=== PATIENT | female | born 1995 | race Two or more races ===

== ENCOUNTER 2017-02-11 06:40 | Day surgery (SDC) | payer OTHER ==
[2017-02-10 11:18] VITALS: BMI 30.2
[~2017-02-11] VITALS: Ht 157.5 cm; Wt 70.0 kg
[2017-02-11 07:56] VITALS: Ht 157.5 cm; Wt 70.0 kg
[2017-02-11 08:04] VITALS: BP 102/65; PULSE 97; RESP 18
[2017-02-11] MEDS ORDERED: PROPOFOL 100 ML ONE (09:27)
[2017-02-11] MEDS ORDERED: DEXAMETHASONE 4 MG/ML 1 ML INJ ONE (09:30)
[2017-02-11] MEDS ORDERED: ROCURONIUM 50 MG INJ ONE (09:30)
[2017-02-11] MEDS ORDERED: LIDOCAINE 2% (SDV) 5 ML INJ ONE (09:31)
[2017-02-11] MEDS ORDERED: MIDAZOLAM 1 MG/ML 2 ML INJ ONE (09:32)
[2017-02-11] MEDS ORDERED: FENTAnyl 50 MCG/ML VIAL ONE (09:32)
[2017-02-11] MEDS ORDERED: hydrALAzine 20 MG INJ IV PRN (10:00)
[2017-02-11] MEDS ORDERED: HYDROmorphONE (0.2 MG/ML) 10ML SYG IV PRN ×3 (10:00)
[2017-02-11] MEDS ORDERED: ONDANSETRON 4 MG INJ IV PRN (10:00)
[2017-02-11] MEDS ORDERED: FENTAnyl 50 MCG/ML VIAL IV PRN ×3 (10:00)
[2017-02-11] MEDS ORDERED: LABETALOL HCL 20MG INJ IV PRN (10:00)
[2017-02-11] MEDS ORDERED: OXYCODONE/ACETAMINOPHEN (5/325) TAB PO PRN ×2 (10:00)
[2017-02-11] MEDS ORDERED: MEPERIDINE 25 MG INJ IV PRN (10:00)
[2017-02-11] MEDS ORDERED: EPHEDrine SULFATE 50 MG/5 ML SYG IV PRN (10:00)
== END 2017-02-11 10:25 | disposition home or self-care (01) ==
LOC: SDS 06:40
PROVIDERS: ATTEND Ophthalmology
DX: H50.52 Exophoria (principal); Z53.9 Procedure and treatment not carried out, unspecified reason
CPT/HCPCS: 84703; J1100; J2250; J3010; Z7610

== ENCOUNTER 2017-02-13 07:55 | Day surgery (SDC) | payer OTHER ==
[~2017-02-13] VITALS: Ht 157.5 cm; Wt 70.4 kg
[2017-02-13] VITALS (17 sets, daily range): BP systolic 109–119; BP diastolic 66–74; PULSE 82–98; RESP 16–21; Ht 157.5 cm; Wt 70.4 kg
[~2017-02-13 07:55] MED LIST: BALANCED SALT SOLN 15 ML OPH IRRIG ONE
--- NOTE | 2017-02-13 09:52 | HPN ---
Date/Time of Note Date/Time of Note DATE: 02/13/17 TIME: 09:52 Interval H&P Admission Note Pt. seen H&P reviewed: No system changes ROSMERY BRUCE MD Feb 13, 2017 09:52
[2017-02-13] MEDS ORDERED: FENTAnyl 50 MCG/ML VIAL ONE (10:09)
[2017-02-13] MEDS ORDERED: MIDAZOLAM 1 MG/ML 2 ML INJ ONE (10:09)
[2017-02-13] MEDS ORDERED: FENTAnyl 50 MCG/ML VIAL IV PRN (11:00)
[2017-02-13] MEDS ORDERED: HYDROmorphONE (0.2 MG/ML) 10ML SYG IV PRN ×2 (11:00)
[2017-02-13] MEDS ORDERED: DIPHENHYDRAMINE 50 MG INJ IV PRN (11:00)
[2017-02-13] MEDS ORDERED: MEPERIDINE 25 MG INJ IV PRN (11:00)
[2017-02-13] MEDS ORDERED: ONDANSETRON 4 MG INJ IV PRN (11:00)
[2017-02-13] MEDS ORDERED: PROPOFOL 20 ML ONE (11:47)
[2017-02-13] MEDS ORDERED: LIDOCAINE 2% (SDV) 5 ML INJ ONE (11:47)
[2017-02-13] MEDS ORDERED: ONDANSETRON 4 MG INJ ONE (11:49)
--- NOTE | 2017-02-13 12:23 | OPR ---
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 OPERATION PERFORMED: 7.0 mm recession of both lateral rectus muscles. DESCRIPTION OF PROCEDURE: Following adequate anesthesia and preparation of the lids, attention was first placed to the left eye. A solid bladed speculum was placed for immobilization after the lids had been taped out of the operative field. A temporal peritomy was performed. The ends having an 8-0 Vicryl suture so that they would be available and easy to find at the end of the muscle procedure. The conjunctiva was now carried posterior outside of the conjunctiva to incise posterior to where the approximate insertion of the lateral rectus muscle, following which tenon's capsule above the muscle was entered and opened, following which a muscle hook was placed so as to enclose the entire tendinous insertion of the lateral rectus muscle. The insertion of the muscle was now cleaned of tenon's capsule. A 6-0 Vicryl suture was now interwoven through the insertion of the muscle and locked both superiorly and inferiorly. The muscle was now disinserted from its attachment to the globe and reattached 7.0 mm posterior to the original insertion. The conjunctiva was now repositioned with interrupted 8-0 Vicryl sutures. The eye was flooded with 5% Betadine solution, following which 2 or 3 drops of TobraDex was placed in the eye. After ensuring that the eye was closed, attention was now directed to the right eye. A similar procedure was performed with the lateral rectus muscle of the right eye. The patient tolerated anesthesia quite well and was returned to the recovery room in satisfactory condition. Dictated By: ROSMERY ASCENCIO/GIAN Conf#: [id number] DID#: [id number] LEILA
[2017-02-13] MEDS ORDERED: OXYCODONE/ACETAMINOPHEN (5/325) TAB PO ONE (12:30)
== END 2017-02-13 15:16 | disposition home or self-care (01) ==
LOC: SDS 07:55
PROVIDERS: ATTEND Ophthalmology
DX: H50.34 Intermittent alternating exotropia (principal)
CPT/HCPCS: 67311; J2175; J2250; J2405; J3010; Z7512; Z7610